=== PATIENT | male | born 1990 | race Caucasian/White ===

== ENCOUNTER 2016-10-10 18:26 | Emergency (ER) | payer BC, OTHER ==
[~2016-10-10] VITALS: Ht 177.8 cm; Wt 86.2 kg
[~2016-10-10 18:26] MED LIST: traMADol ER 100MG TABLET (ULTRAM ER) PO ONE
[2016-10-10] MEDS ORDERED: TRAM50TA2 PO (19:35)
--- NOTE | 2016-10-10 19:43 | REP ---
LEFT SHOULDER. HISTORY: Pain after trauma. COMPARISON: None. FINDINGS: Three views of the left shoulder were performed. The acromioclavicular and glenohumeral relationships are within normal limits. There is no acute fracture or destructive osseous lesion. Signed by Brennon Rea DO 10/10/2016 07:45 P
[2016-10-10 20:01] VITALS: BP 153/83
[2016-10-11] MEDS ORDERED: traMADol ER 100MG TABLET (ULTRAM ER) PO SCH (09:00)
== END 2016-10-10 20:03 | disposition home or self-care (01) ==
LOC: M ED 19:25
DX: S46.912A Strain of unspecified muscle, fascia and tendon at shoulder and upper arm level, left arm, initial encounter (principal); X58.XXXA Exposure to other specified factors, initial encounter; Y92.099 Unspecified place in other non-institutional residence as the place of occurrence of the external cause; Y93.9 Activity, unspecified; Y99.9 Unspecified external cause status; F17.200 Nicotine dependence, unspecified, uncomplicated; Z88.6 Allergy status to analgesic agent

== ENCOUNTER 2017-03-25 23:03 | Emergency (ER) | payer MEDICAID, OTHER ==
[~2017-03-25] VITALS: Ht 177.8 cm; Wt 38.1 kg
[~2017-03-25 23:03] MED LIST changes: +TRAM50TA2 PO; -traMADol ER 100MG TABLET (ULTRAM ER) PO ONE
[2017-03-25] MEDS ORDERED: traMADol 50 MG TAB PO ONE (23:30)
[2017-03-25] MEDS ORDERED: LIDOCAINE 2% MDV 20 ML VIAL SC ONE (23:30)
[2017-03-25] MEDS ORDERED: AUGM875T28 PO (23:51)
[2017-03-25 23:53] VITALS: BP 119/72
--- NOTE | 2017-03-26 00:04 | REP ---
Clinical: Trauma. Technique: AP, lateral, bilateral oblique views right hand digits. Findings: The osseous structures and joint spaces are intact and normal. There is no evidence for acute fracture or dislocation. Surrounding soft tissues are unremarkable. No subcutaneous emphysema or radiodense foreign body. Impression: Normal examination. No acute fracture or dislocation. Signed by Shayne Santiago MD 03/25/2017 11:55 P
== END 2017-03-26 00:27 | disposition home or self-care (01) ==
LOC: EDBD 23:03 → M ED 23:03
DX: S61.210A Laceration without foreign body of right index finger without damage to nail, initial encounter (principal); S61.212A Laceration without foreign body of right middle finger without damage to nail, initial encounter; S61.214A Laceration without foreign body of right ring finger without damage to nail, initial encounter; S61.216A Laceration without foreign body of right little finger without damage to nail, initial encounter; W22.8XXA Striking against or struck by other objects, initial encounter; Y92.099 Unspecified place in other non-institutional residence as the place of occurrence of the external cause; Y93.9 Activity, unspecified; Y99.9 Unspecified external cause status; F17.200 Nicotine dependence, unspecified, uncomplicated; Z88.6 Allergy status to analgesic agent

== ENCOUNTER 2017-04-19 13:50 | Emergency (ER) | payer MEDICAID, OTHER ==
[~2017-04-19] VITALS: Ht 170.2 cm; Wt 81.8 kg
[~2017-04-19 13:50] MED LIST changes: +AUGM875T28 PO
[2017-04-19 13:51] VITALS: BP 126/65
--- NOTE | 2017-04-19 15:25 | REP ---
Ultrasonography of a right forearm palpable lump: There is a large complex soft tissue mass with solid and fluid components measuring 5.4 x 3.8 x 4.5 cm. This could represent neoplasm, abscess or hematoma. Signed by Stan Alejandre MD 04/19/2017 03:17 P
[2017-04-19] MEDS ORDERED: BACT800T5 PO (15:37)
[2017-04-19] MEDS ORDERED: IBUP80TA PO (15:37)
[2017-04-19] MEDS ORDERED: BACTRIM 160MG/800MG DS TAB PO ONE (15:45)
[2017-04-19] MEDS ORDERED: KETOROLAC 60 MG/2 ML VIAL (J1885) IM ONE (15:45)
== END 2017-04-19 16:16 | disposition home or self-care (01) ==
LOC: M ED 13:50
DX: L02.414 Cutaneous abscess of left upper limb (principal); Z88.6 Allergy status to analgesic agent
CPT/HCPCS: 10060; 76882; 96372; 99282; J1885

== ENCOUNTER → 2020-10-17 | Outpatient (CLI) | payer MEDICAID, SELFPAY ==
[~2020-10-17] MED LIST changes: +BACT800T5 PO; +IBUP80TA PO
== END ==
LOC: M OUTALCOH 11:33
PROVIDERS: ATTEND Psychiatry & Neurology Psychiatry
DX: Z03.89 Encounter for observation for other suspected diseases and conditions ruled out (principal)

== ENCOUNTER 2021-06-03 20:54 | Emergency (ER) | payer MEDICAID ==
[~2021-06-03] VITALS: Ht 177.8 cm; Wt 101.1 kg
[2021-06-03 20:55] VITALS: BP 117/72
== END 2021-06-04 02:37 | disposition left against medical advice (07) ==
LOC: M ED 20:54
DX: Z53.21 Procedure and treatment not carried out due to patient leaving prior to being seen by health care provider (principal)

== ENCOUNTER → 2021-12-03 | Outpatient (REF) | payer MEDICAID ==
[2021-12-03 16:13] LABS: HEMATOCRIT 49.1 % (42.0-52.0); HEMOGLOBIN 16.2 g/dl (13.5-17.5); MEAN CORPUSCULAR HEMOGLOBIN 29.7 pg (27.0-33.0); MEAN CORPUSCULAR VOLUME 89.9 fl (80.0-96.0); PLATELET COUNT, AUTOMATED 155 10^3/uL (150-450); RED BLOOD COUNT 5.46 10^6/uL (4.30-6.10); WHITE BLOOD COUNT 5.6 10^3/uL (4.0-10.0)
[2021-12-03 17:41] LABS: ALBUMIN 3.9 GM/DL (3.2-5.2); ALT/SGPT 196 U/L (12-78); BILIRUBIN,TOTAL 0.5 MG/DL (0.2-1.0); BLOOD UREA NITROGEN 20 MG/DL (7-18); CALCIUM LEVEL 9.6 MG/DL (8.5-10.1); CARBON DIOXIDE LEVEL 28 MEQ/L (21-32); CHLORIDE LEVEL 108 MEQ/L (98-107); CREATININE FOR GFR 0.92 MG/DL (0.70-1.30); GLOMERULAR FILTRATION RATE > 60.0 (>60); GLUCOSE, FASTING 61 MG/DL (70-100); HEPATITIS B SURFACE ANTIGEN NEGATIVE (NEGATIVE); HIV 1&2 SCREEN CENTAUR NEGATIVE (NEGATIVE); POTASSIUM SERUM 5.6 MEQ/L (3.5-5.1); SODIUM LEVEL 142 MEQ/L (136-145); TOTAL PROTEIN 7.9 GM/DL (6.4-8.2)
[2021-12-03 17:46] LABS: HEPATITIS C VIRUS ABY INDEX > 11.0 INDEX (<0.8)
== END ==
LOC: M LAB REF 15:40
PROVIDERS: ATTEND Family Medicine
DX: F11.20 Opioid dependence, uncomplicated (principal)

== ENCOUNTER → 2021-12-11 | Outpatient (REF) | payer MEDICAID | LOC: M LAB REF 12:12 | PROVIDERS: ATTEND Family Medicine | DX: F11.20 Opioid dependence, uncomplicated (principal) ==